=== PATIENT | male | born 1975 | race Caucasian/White ===

== ENCOUNTER 2017-06-12 13:22 | Inpatient (IN) | payer BC, MEDICAID, OTHER ==
[~2017-06-12] VITALS: Ht 182.9 cm; Wt 95.3 kg
--- NOTE | 2017-06-12 16:42 | NUR ---
PRE ADMISSION 41 year old male presented at intake, patient is alert and oriented x4, bp: 155/95 hr: 97 t: 98.2.2 r: 16 o2 sat: 96% room air. patient has poor eye contact, appears mildly intoxicated, flushed faced, inability to sit still, and disheveled. patient reports no known drug allergies. Patient reports substance use history of: etoh- 750ml of whiskey and 6-8 beers on a daily basis for 2 years. patient denies any history of seizures. patient reports father and mother have history of etoh substance abuse. patient reports this is his second time in treatment. patient was educated regarding unit policies and procedures with good verbal understanding. patient was seen by Dr. Valentin at intake office.
[2017-06-12] MEDS ORDERED: ACETAMINOPHEN 325 MG TABLET PO PRN (16:45)
[2017-06-12] MEDS ORDERED: LORAZEPAM 2 MG/1 ML VIAL IM PRN (16:45)
[2017-06-12] MEDS ORDERED: MAG HYDROX/AL HYDROX/SIMETH 30 ML LIQUID UDC PO PRN (16:45)
[2017-06-12] MEDS ORDERED: LORAZEPAM 1 MG TABLET PO PRN ×2 (16:45)
[2017-06-12] MEDS ORDERED: THIAMINE HCL 200 MG/2 ML VIAL IM ONE (16:45)
[2017-06-12] MEDS ORDERED: ONDANSETRON 4 MG/2 ML VIAL IM PRN (16:45)
[2017-06-12] MEDS ORDERED: DICYCLOMINE HCL 20 MG TABLET PO PRN (16:45)
[2017-06-12] MEDS ORDERED: ONDANSETRON ODT 4 MG TAB.RAPDIS SL PRN (16:45)
[2017-06-12] MEDS ORDERED: LOPERAMIDE HCL 2 MG CAPSULE PO PRN ×2 (16:45)
[2017-06-12] MEDS ORDERED: MIRALAX 17 GM POWD.PACK PO PRN (16:45)
[2017-06-12] MEDS ORDERED: MAGNESIUM HYDROXIDE 30 ML LIQUID UDC PO PRN (16:45)
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
[2017-06-12 17:19] VITALS: BP 155/95
[2017-06-12 17:32] LABS: *AMPHETAMINE, URINE NEGATIVE (NEGATIVE); *BARBITURATE, URINE NEGATIVE (NEGATIVE); *CANNABINOID, URINE NEGATIVE (NEGATIVE); *COCCAINE, URINE NEGATIVE (NEGATIVE); *OPIATE, URINE NEGATIVE (NEGATIVE); *PHENCYCLIDINE SCREEN,URINE NEGATIVE (NEGATIVE)
[2017-06-12 18:03] LABS: BASOPHILS % (AUTO) 0.6 % (0.0-2.0); EOSINOPHILS # (AUTO) 0.1 K/uL (0.0-0.7); EOSINOPHILS % (AUTO) 1.6 % (0.0-7.0); HEMATOCRIT 44.8 % (36.7-47.1); HEMOGLOBIN 15.5 g/dL (12.5-16.3); LYMPHOCYTES # (AUTO) 1.4 K/uL (20.0-40.0); LYMPHOCYTES % (AUTO) 20.9 % (20.5-51.5); MEAN CORPUSCULAR HEMOGLOBIN 34.4 uug (23.8-33.4); MEAN CORPUSCULAR HGB CONC 35 g/dL (32.5-36.3); MEAN CORPUSCULAR VOLUME 99.2 fL (73.0-96.2); MONOCYTES # (AUTO) 0.2 K/uL (2.0-10.0); MONOCYTES % (AUTO) 3.5 % (0.0-11.0); NEUTROPHILS # (AUTO) 4.9 K/uL (1.8-8.9); NEUTROPHILS % (AUTO) 73.4 % (38.5-71.5); PLATELET COUNT (AUTO) 207 K/uL (152-348); RED BLOOD CELL COUNT(AUTO) 4.51 MIL/uL (4.06-5.63); WHITE BLOOD COUNT (AUTO) 6.6 K/uL (3.6-10.2)
[2017-06-12 18:13] LABS: BILIRUBIN,TOTAL 0.5 mg/dL (0.2-1.0); CREATININE 0.9 mg/dL (0.6-1.3); MAGNESIUM 1.9 mg/dL (1.8-2.4); POTASSIUM 3.7 mmol/L (3.5-5.1); TOTAL PROTEIN, SERUM 7.2 g/dL (6.4-8.2)
--- NOTE | 2017-06-12 19:30 | NUR ---
Start of Shift Pt is a 41 y/o male admitted approximate 1430 today 06/12/17 for ETOH Withdrawal. He's found sitting quitly in chair staring out window. Dinner tray untouched, room clean and bed made, pt is despondent and guarded, flat affect, voice solemn and sad as we talk about his stay here, and his DUI which helped bring him here. Pt still appears to be moderately intoxicated, odor of alcohol present in room. Hx of depression/anxiety denied. Pt denies 12 step program attendance except for 20 years prior after first DUI. Pt informed of unit amenities, encouraged to explore/socialize outside of room, interest apparent in kitchen/snacks. Pt c/o anxiety 11/05, fine tremors noted. 2100 med to be Ativan 2mg PO. Will continue to monitor and promptly attend to all needs.
[2017-06-12 20:00] VITALS: BP 158/102
[2017-06-12] MEDS ORDERED: LORAZEPAM 1 MG TABLET PO SCH (21:00)
[2017-06-13] VITALS (8 sets, daily range): BP systolic 113–164; BP diastolic 69–111
--- NOTE | 2017-06-13 | NUR ---
VS's/CIWA Deferred. Pt sleeping, RR 14, even and nonlabored. Will continue to monitor and promptly meet all needs
--- NOTE | 2017-06-13 04:29 | NUR ---
PRN Med Pt presents at 0400 VS with SBP 147, P 113, CIWA performed at 12. Ativan 1mg PO given, will monitor and reassess in 1 hour
--- NOTE | 2017-06-13 05:27 | NUR ---
PRN Reassessment Ativan 1mg PO given 426, pt reports improvement as "headaches gone and I feel a little better". SBP 164, P 121, Clonodine 0.1 mg PO given. Will continue to monitor, assess in 1 hour, and promptly attend to all needs.
[2017-06-13] MEDS: CLONIDINE HCL 0.1 MG TABLET PO PRN ×2 (05:36→12:12)
--- NOTE | 2017-06-13 06:36 | NUR ---
PRN Med Reassessment Clonidine 0.1mg PO given at 0527 for SBP 164 and P 121. Current vitals 147/99, P 82. Clonodine effective. Will continue to monitor and promptly attend to all needs.
--- NOTE | 2017-06-13 06:59 | NUR ---
End of Shift Pt is a 41 y/o male admitted approximate 1430, 06/12/17 for ETOH Withdrawal. Pt drinking up to his admission here. Pt remains depressed and withdrawn but cooperative, affect flat, responding to questions appropriately but not actively seeking help. Given Ativan 2mg PO for 2100 with elevated BP and Pulse, 0100 VS wnl's. 0400 show elevated BP and pulse, CIWA 12, Ativan 1mg PO given at 0427. Reassessment 1 hour later showed SBP 164 w a rate of 121, Clonodine 0.1mg PO given. 0530 SPP 147, P 82-Clonidine effective. Will encourage Day RN to administer 0900 Ativan early and use PRN's as necessary. Input for shift 1000ml, Void 1, Sleep 7+ hours. Will continue to monitor and promptly attend to all needs.
--- NOTE | 2017-06-13 07:53 | NUR ---
START OF SHIFT NOTE Received report from night nurse, 41 year old male admitted for ETOH withdrawal. Patient placed on a Ativan taper starting today at 0900. Per endorsement patient received PRN Ativan 1 mg, Clonidine effective per night nurse and patient slept for 7 hours, last CIWA score was 12. Received patient alert awake agitated, anxious, nauseated, mood is sad, Bilateral tremors noted. Patient due for scheduled medications. Educated patient with current plan of the day and medications regimen and importance of attending groups and activities with good verbal understanding. Safety measures in place. Will cont with plan of care.
[2017-06-13] MEDS: FOLIC ACID 1 MG TABLET PO SCH (08:35)
[2017-06-13] MEDS: LORAZEPAM 1 MG TABLET PO SCH ×4 (08:35→21:30)
[2017-06-13] MEDS: THIAMINE HCL 100 MG TABLET PO SCH (08:35)
[2017-06-13] MEDS: MULTIVITAMINS,THERAPEUTIC TABLET PO SCH (08:35)
[2017-06-13] MEDS ORDERED: TUBERCULIN,PURIF.PROT.DERIV. 5 TU/0.1 ML TEST ID ONE (09:00)
--- NOTE | 2017-06-13 12:12 | NUR ---
PRN CLONIDINE Patient's blood pressure noted 150/100, HR-104. PRN Clonidine 0.1mg PO administered as ordered. Will cont to monitor and reassess the pt.
--- NOTE | 2017-06-13 13:13 | NUR ---
CLONIDINE REASSESSMENT Blood pressure noted 139/85. Clonidine was effective.
[2017-06-13] MEDS: IBUPROFEN 400 MG TABLET PO PRN ×2 (16:56→21:30)
--- NOTE | 2017-06-13 16:56 | NUR ---
PRN MOTRIN Patient c/o of body aches 5/10. PRN Motrin 400mg PO given as ordered. Will cont to monitor and reassess the pt.
[2017-06-13] MEDS: hydrALAZINE HCL 50 MG TABLET PO PRN (17:43)
--- NOTE | 2017-06-13 17:43 | NUR ---
PRN HYDRALAZINE Patient's blood pressure noted 155/103, HR-100. MD notified with new order to given Hydralazine 50mg PO medication was given as ordered. Will cont to monitor and reassess.
--- NOTE | 2017-06-13 17:56 | NUR ---
MOTRIN REASSESSMENT Per patient Motrin was effective body aches lower to 2/10.
--- NOTE | 2017-06-13 18:43 | NUR ---
HYDRALAZINE REASSESSMENT Blood pressure noted 139/89, HR-97. Hydralazine noted effective.
--- NOTE | 2017-06-13 19:10 | NUR ---
END OF SHIFT NOTE Patient presented with anxiety, agitation, body aches, chills, sweats, light headed, labile facial expression, tremors noted on bilateral hands, elevated blood pressure. Patient admitted for ETOH withdrawal and cont on 5 days Ativan taper. Vital signs WNL. During shift patient received PRN Clonidine 0.1mg PO and Motrin 400mg noted to be effective. PPD was given on RFA no swelling noted at this time. Skin intact warm and dry to touch. Patient was seen by psychiatrist with no new order at this time. Encourage pt to develop coping skills and utilization of non pharmacological intervention. Patient rested in his room most of the time. Patient was encouraged to participates in groups therapy session. Encourage diversional activities to alleviate anxiety. Patient denies any SI/HI. Safety measures in place. Patient endorsed to night nurse in stable condition.
--- NOTE | 2017-06-13 19:20 | NUR ---
START OF SHIFT Patient is a 41-year-old male admitted on 06/12/17 for ETOH withdrawal. Patient is on a 5-day Ativan taper which started today; tolerating well. Patient's last CIWA was 15 per day shift nurse. Patient received PRN Clonidine, hydralazine, and Motrin today; all noted effective by day nurse. Upon assessment, patient is in his room with lights off, stating "I can't fall asleep." Patient appears disheveled with flat affect, hypoactive and appears depressed. Patient reports feeling anxious. Patient is on fall and seizure precautions with no report of seizure history. Safety measures in place, side rails up x2, bed locked in lowest position, call light within reach. Will continue to monitor.
[2017-06-13] MEDS: diphenhydrAMINE 50 MG CAPSULE PO PRN (21:30)
--- NOTE | 2017-06-13 21:30 | NUR ---
PRN BENADRYL AND MOTRIN Patient reports inability to sleep, and requests aid. PRN Benadryl given PO. Patient reports low back pain of 5/10. PRN Motrin given PO. Safety measures in place, side rails up x2, bed locked in lowest position, call light within reach. Will monitor for effectiveness.
--- NOTE | 2017-06-13 22:30 | NUR ---
PRN BENADRYL AND MOTRIN REASSESSMENT Patient observed sleeping in bed, eyes closed, respirations even and unlabored. PRN Benadryl effective. Unable to reassess PRN Motrin at this time. Safety measures in place, call light within reach. Will continue to monitor.
[2017-06-14] VITALS: BP 122/74
--- NOTE | 2017-06-14 | NUR ---
CIWA DEFERRED CIWA deferred due to patient sleeping; to be assessed and scored while patient is awake. Respirations even and unlabored, 16/min. Safety measures in place, side rails up x2, bed locked in low position, call light within reach. Will continue to monitor.
--- NOTE | 2017-06-14 04:00 | NUR ---
VITALS REFUSED, CIWA DEFERRED Patient refused 4AM vitals, respirations even and unlabored, 16/min. CIWA deferred due to patient sleeping; to be assessed while patient is awake. Safety measures in place, side rails up x2, bed locked in low position, call light within reach. Will continue to monitor.
--- NOTE | 2017-06-14 07:10 | NUR ---
END OF SHIFT Patient is a 41-year-old male admitted on 06/12/17 for ETOH withdrawal. Patient is on a 5-day Ativan taper which started yesterday; tolerating well. Patient's last CIWA was 14. Patient received PRN Motrin and Benadryl; PRNs effective. Patient slept for 7 hours, total intake 1,254 mL, void x3, stool x1. Patient is on fall and seizure precautions with no report of seizure history. Safety measures in place, side rails up x2, bed locked in lowest position, call light within reach. Will endorse to day shift.
--- NOTE | 2017-06-14 07:48 | NUR ---
START OF SHIFT NOTE Received report from night nurse, 41 year old male admitted for ETOH withdrawal. Patient cont on a Ativan taper tolerating well. Per endorsement patient received PRN Motrin/Benadryl effective per night nurse and patient slept for 7 hours, last CIWA score was 14. Received patient alert awake agitated, anxious, Bilateral tremors noted. Patient due for scheduled medications. Educated patient with current plan of the day and medications regimen and importance of attending groups and activities with good verbal understanding. Safety measures in place. Will cont with plan of care.
[2017-06-14 08:00] VITALS: BP 120/78
[2017-06-14] MEDS: MULTIVITAMINS,THERAPEUTIC TABLET PO SCH (08:30)
[2017-06-14] MEDS: LORAZEPAM 1 MG TABLET PO SCH ×3 (08:30→20:30)
[2017-06-14] MEDS: FOLIC ACID 1 MG TABLET PO SCH (08:30)
[2017-06-14] MEDS: THIAMINE HCL 100 MG TABLET PO SCH (08:30)
[2017-06-14 12:00] VITALS: BP 136/88
[2017-06-14] MEDS ORDERED: LORAZEPAM 1 MG TABLET PO ONE (12:00)
[2017-06-14 12:07] LABS: HEPATITIS B SURFACE AG Negative (Negative)
--- NOTE | 2017-06-14 12:17 | NUR ---
ATIVAN ONE TIME CIWA score noted 13, order Ativan 1mg PO one time. Medication given as ordered.
[2017-06-14] MEDS: ESCITALOPRAM OXALATE 10 MG TABLET PO SCH (14:41)
--- NOTE | 2017-06-14 14:41 | NUR ---
NEW ORDER Patient was seen by Psychiatrist with new order for Lexapro 10mg PO,medication was administered as ordered.
[2017-06-14 16:00] VITALS: BP 123/87
--- NOTE | 2017-06-14 19:10 | NUR ---
END OF SHIFT NOTE Patient presented with anxiety, agitation, body aches, sweats, light headed, labile facial expression, tremors noted on bilateral hands. Patient admitted for ETOH withdrawal and cont on 5 days Ativan taper tolerating . Vital signs WNL. During shift patient received one time dose of Ativan noted to be effective. Skin intact warm and dry to touch. Patient was seen by psychiatrist with new order for Lexapro 10mg. Encourage pt to develop coping skills and utilization of non pharmacological intervention. Patient rested in his room most of the time. Patient was encouraged to participates in groups therapy session. Encourage diversional activities to alleviate anxiety. Patient denies any SI/HI. Safety measures in place. Patient endorsed to night nurse in stable condition.
--- NOTE | 2017-06-14 19:30 | NUR ---
START OF SHIFT Received 41 year old male patient admitted on 06/12/17 for ETOH withdrawal. Pt is alert and oriented x4. He is receiving a 5 day Ativan taper and is tolerating well. Per endorsement, pt received one time Ativan for CIWA:14. Pt noted to be depressed, restless, agitated, anxious with flat affect, racing thoughts and poor eye contact. Pt is withdrawn and isolative to his room. Breathing is even and unlabored, safety measures in place. Will continue to monitor.
[2017-06-14 20:00] VITALS: BP 139/97
[2017-06-14] MEDS: diphenhydrAMINE 50 MG CAPSULE PO PRN (20:29)
[2017-06-14] MEDS: CLONIDINE HCL 0.1 MG TABLET PO PRN (20:29)
--- NOTE | 2017-06-14 20:29 | NUR ---
PRN BENADRYL/CLONIDINE Pt complains of inability to sleep. Pt also noted with increased BP 139//97, HR: 108. PRN Benadryl and Clonidine administered as ordered. Safety measures in place. Will monitor effectiveness.
[2017-06-14 21:29] VITALS: BP 128/85
--- NOTE | 2017-06-14 21:29 | NUR ---
PRN REASSESSMENT PRN Benadryl ineffective. Pt still awake, appears drowsy and reports he is ready to sleep soon. PRN Clonidine effective. BP: 128/85, HR:88. Safety measures in place. Will continue to monitor.
[2017-06-15] VITALS: BP 125/76
--- NOTE | 2017-06-15 04:00 | NUR ---
VITALS REFUSED, CIWA DEFERRED 0400 vitals refused. CIWA deferred d/t pt lying in bed with eyes closed noted to be asleep. Breathing is even and unlabored, safety measures in place. Will continue to monitor.
--- NOTE | 2017-06-15 07:00 | NUR ---
END OF SHIFT Pt is a 41 year old male patient admitted on 06/12/17 for ETOH withdrawal. He remains alert and oriented x4. He continues on a 5 day Ativan taper. Currently on day 3 and tolerating well. He was noted to be depressed, restless, agitated, anxious with racing thoughts and poor eye contact during the shift. At 2028 he received PRN Benadryl for sleep and Clonidine d/t increased BP. Both medications were effective. He slept a total of 8 hrs, Intake: 1350ml, Void: x2, BM:0, CIWA:11 at 1999. Pt's MRSA result came back negative. Breathing is even and unlabored, safety meausres in place. Endorsed to AM shift.
--- NOTE | 2017-06-15 07:05 | NUR ---
Start of Shift Bench Molder Apprentice received report on 41 year old male admitted to [facility] on 06/12/17 for medically supervised management of ETOH withdrawals. Pt endorses NKA, a full code and regular diet. Pt reports no PMH. Pt currently on Ativan taper. Tolerating well, with last CIWA 11 recorded at 1999. PRN Benadryl and Clonidine administered on NOC, per report. Bench Molder Apprentice encounters pt in his room resting with eyes closed, rise and fall of chest noted, with even and unlabored respirations. Bed in low position with wheels locked and side rails up x2. Will continue to monitor, support and encourage according to plan of care.
[2017-06-15 08:14] VITALS: BP 140/98
[2017-06-15] MEDS ORDERED: LORAZEPAM 1 MG TABLET PO SCH ×2 (09:00→21:00)
[2017-06-15] MEDS: FOLIC ACID 1 MG TABLET PO SCH (09:07)
[2017-06-15] MEDS: ESCITALOPRAM OXALATE 10 MG TABLET PO SCH (09:07)
[2017-06-15] MEDS: MULTIVITAMINS,THERAPEUTIC TABLET PO SCH (09:07)
[2017-06-15] MEDS: THIAMINE HCL 100 MG TABLET PO SCH (09:07)
[2017-06-15 12:23] VITALS: BP 150/98
[2017-06-15] MEDS: LORAZEPAM 1 MG TABLET PO SCH ×2 (12:34→16:04)
[2017-06-15] MEDS: hydrALAZINE HCL 50 MG TABLET PO PRN (12:34)
--- NOTE | 2017-06-15 12:34 | NUR ---
PRN Felipe Pt's BP: 158/108. Programmer Numerical Control administers medication per order. Will continue to monitor, support and encourage according to plan of care.
--- NOTE | 2017-06-15 13:34 | NUR ---
PRN Re-assessment Pt's BP: 142/88, with no complaints. Will continue to monitor, support and encourage according to plan of care.
[2017-06-15 16:08] VITALS: BP 128/82
--- NOTE | 2017-06-15 18:54 | NUR ---
End of Shift Monitoring And Evaluation Advisor provided report on 41 year old male admitted to [facility] on 06/12/17 for medically supervised management of ETOH withdrawals. Pt endorses NKA, a full code and regular diet. Pt reports no PMH. Pt currently on Ativan taper. Tolerating well, with last CIWA 5 recorded at 1600. PRN Hydrolazyne administered for HTN, effective. Pt is A/O x4 and makes his needs known. Isolates to room and self. Pt has remained in bed at window thru out the shift. Irritated affect with a depressed mood. Cooperative, but withdrawn and distant. Bed in low position with wheels locked and side rails up x2. Will continue to monitor, support and encourage according to plan of care.
--- NOTE | 2017-06-15 19:30 | NUR ---
START OF SHIFT Received 41 year old male patient admitted on 06/12/17 for ETOH withdrawal. Pt is alert and oriented x4. He continues on a 5 day modified Ativan taper and tolerating well. Per endorsement, he received PRN Hydralazine for increased BP. Pt noted to be disheveled wearing unwashed clothing. He is noted with tremors, anxiety, agitation, poor eye contact, . Pt is withdrawn and isolated to his room. Breathing is even and unlabored, safety measures in place. Will continue to monitor.
[2017-06-15 20:00] VITALS: BP 125/74
[2017-06-15] MEDS: GABAPENTIN 300 MG CAPSULE PO SCH (20:27)
[2017-06-15] MEDS: diphenhydrAMINE 50 MG CAPSULE PO PRN (20:27)
--- NOTE | 2017-06-15 20:27 | NUR ---
PRN BENADRYL Pt complains of difficulty sleeping. PRN Benadryl administered as ordered. Breathing is even and unlabored, safety measures in place. Will continue to monitor effectiveness.
--- NOTE | 2017-06-15 21:27 | NUR ---
PRN REASSESSMENT PRN medication ineffective. Pt still awake but appears drowsy and reports he is going to sleep soon. Safety measures in place. Will continue to monitor.
[2017-06-16] VITALS: BP 122/80
--- NOTE | 2017-06-16 04:00 | NUR ---
VITALS REFUSED/ CIWA DEFERRED 0400 vitals refused. CIWA deferred d/t pt lying in bed with eyes closed noted to be asleep. Breathing is even and unlabored, safety measures in place. Will monitor.
--- NOTE | 2017-06-16 07:08 | NUR ---
END OF SHIFT Pt is a 41 year old male patient admitted on 06/12/17 for ETOH withdrawal. He remains alert and oriented x4. He continues on a 5 day modified Ativan taper, currently on day 4/5 and tolerating well. Pt was noted with tremors, anxiety, and agitation. He was also noted to be withdrawn and isolated to his room during the shift. At 2026 he received PRN Benadryl. He slept a total of 6 hrs, Intake: 1,346mL, Void:x2, BM:x1, CIWA;7 at 2000. Breathing is even and unlabored, safety measures in place. Endorsed to AM shift.
--- NOTE | 2017-06-16 07:15 | NUR ---
Start of Shift Office Manager Receptionist received report on 41 year old male admitted to [facility] on 06/12/17 for medically supervised management of ETOH withdrawals. Pt endorses NKA, a full code and regular diet. Pt reports no PMH. Pt currently on Ativan taper. Tolerating well, with last CIWA 7 recorded at 1999, per report. PRN Benadryl administered on NOC, per report. Office Manager Receptionist encounters pt in his room resting with eyes closed, rise and fall of chest noted, with even and unlabored respirations. Bed in low position with wheels locked and side rails up x2. Will continue to monitor, support and encourage according to plan of care.
[2017-06-16 08:44] VITALS: BP 123/87
[2017-06-16] MEDS: GABAPENTIN 300 MG CAPSULE PO SCH ×2 (08:51→20:19)
[2017-06-16] MEDS: MULTIVITAMINS,THERAPEUTIC TABLET PO SCH (08:51)
[2017-06-16] MEDS: THIAMINE HCL 100 MG TABLET PO SCH (08:51)
[2017-06-16] MEDS: ESCITALOPRAM OXALATE 10 MG TABLET PO SCH (08:51)
[2017-06-16] MEDS: FOLIC ACID 1 MG TABLET PO SCH (08:51)
[2017-06-16] MEDS ORDERED: LORAZEPAM 1 MG TABLET PO SCH ×3 (09:00→21:00)
--- NOTE | 2017-06-16 10:33 | NUR ---
Therapist prompted client about group times. Client stated he will try to attend groups today.
[2017-06-16 12:15] VITALS: BP 149/96
[2017-06-16] MEDS: CLONIDINE HCL 0.1 MG TABLET PO PRN (13:25)
--- NOTE | 2017-06-16 13:25 | NUR ---
PRN Clonidine Pt's BP: 147/96, asymptomatic. Check Totaler administers medication per order and pt tolerated well. Will continue to monitor, support and encourage according to plan of care.
--- NOTE | 2017-06-16 14:25 | NUR ---
PRN Re-Assessment Pt's BP 134/82 on recheck. Will contineu to monitor, support and encourage according to plan of care.
[2017-06-16 16:30] VITALS: BP 112/82
--- NOTE | 2017-06-16 19:30 | NUR ---
START OF SHIFT Received 41 year old male patient admitted on 06/12/17 for ETOH withdrawal. Pt is alert and oriented x4. Pt continues on a 5 day Ativan taper and is tolerating well. Pt is noted to be anxious, agitated, tremulous, irritable and restless. He is isolated and withdrawn with flat affect. Pt noted to be disheveled and unshaved. Per endorsement, he did not attend group meetings. He received PRN Clonidine for increased BP. Medication was effective. Breathing is even and unlabored, safety measures in place. Will continue to monitor.
--- NOTE | 2017-06-16 19:38 | NUR ---
End of Shift Beater Out received report on 41 year old male admitted to [facility] on 06/12/17 for medically supervised management of ETOH withdrawals. Pt endorses NKA, a full code and regular diet. Pt reports no PMH. Pt currently on Ativan taper. Tolerating well, with last CIWA 3 recorded at 1600. Pt has been isolative to room and self. [facility] Withdrawn and guarded, A/O x4 Bed in low position with wheels locked
[2017-06-16 20:00] VITALS: BP 143/87
[2017-06-16] MEDS: diphenhydrAMINE 50 MG CAPSULE PO PRN (20:19)
--- NOTE | 2017-06-16 20:19 | NUR ---
PRN BENADRYL Pt complains of difficulty sleeping. PRN Benadryl administered as ordered. Safety measures in place. Will monitor effectiveness.
--- NOTE | 2017-06-16 21:19 | NUR ---
PRN REASSESSMENt PRN medication ineffective. Pt is still awake, watching TV. He reports feeling drowsy and is ready to sleep soon. Safety measures in place. Will monitor.
--- NOTE | 2017-06-17 | NUR ---
VITALS REFUSED, CIWA DEFERRED Pt refused midnight vital signs. CIWA deferred d/t pt lying in bed with eyes closed noted to be asleep. Breathing even and unlabored, safety measures in place. Will monitor.
--- NOTE | 2017-06-17 04:00 | NUR ---
VITALS REFUSED, CIWA DEFERRED 0400 vitals refused. CIWA deferred d/t pt lying in bed with eyes closed noted to be asleep. Breathing even and unlabored, safety measures in place. Will continue to monitor.
--- NOTE | 2017-06-17 07:04 | NUR ---
END OF SHIFT Pt is a 41 year old male patient admitted on 06/12/17 for ETOH withdrawal. He remains alert and oriented x4. He continues on a modified 5 day Ativan taper and is tolerating well. Pt was noted to be anxious, agitated, tremulous, irritable and restless during the shift. He had complaints of difficulty sleeping and received PRN Benadryl at 2019. He slept a total of 6 hrs, Intake: 1,710mL, Void: x3, BM:0, CIWA:6 at 2000. Breathing is even and unlabored, safety measures in place. Endorsed to AM shift.
--- NOTE | 2017-06-17 07:30 | NUR ---
START OF SHIFT Pt 41 y/o male admitted for etoh withdrawal. Pt received in room with eyes closed resting, but easily arousable to name. Pt alert and oriented to name, place, and time. Perrla. Skin warm and moist to touch. Respirations even and unlabored. Bilateral hand tremors noted. Open empty water bottles scattered throughout the room. Encouraged to maintain hygiene. It was reported that pt slept for 6 hours last night. Last reported ciwa=6 @2000. Pt is on a modified 3 day ativan and is on day 2. Bed on lowest position with side rails x2 up for safety. Call light within reach.
[2017-06-17 08:00] VITALS: BP 119/73
[2017-06-17] MEDS: GABAPENTIN 300 MG CAPSULE PO SCH ×3 (08:35→20:40)
[2017-06-17] MEDS: MULTIVITAMINS,THERAPEUTIC TABLET PO SCH (08:35)
[2017-06-17] MEDS: LORAZEPAM 1 MG TABLET PO SCH ×3 (08:35→20:40)
[2017-06-17] MEDS: AMLODIPINE 5 MG TABLET PO SCH (08:35)
[2017-06-17] MEDS: FOLIC ACID 1 MG TABLET PO SCH (08:35)
[2017-06-17] MEDS: THIAMINE HCL 100 MG TABLET PO SCH (08:35)
[2017-06-17] MEDS ORDERED: ESCITALOPRAM OXALATE 10 MG TABLET PO SCH (09:00)
[2017-06-17] MEDS ORDERED: LORAZEPAM 1 MG TABLET PO SCH (09:00)
[2017-06-17 12:00] VITALS: BP 124/74
[2017-06-17] MEDS ORDERED: DIPH50CA37 PO (14:22)
[2017-06-17] MEDS ORDERED: ESCI10TA PO (14:22)
[2017-06-17] MEDS ORDERED: AMLO5TAB2 PO (14:22)
[2017-06-17] MEDS ORDERED: CLON0.1T14 PO (14:22)
[2017-06-17] MEDS ORDERED: GABA-534 PO (14:22)
[2017-06-17 16:00] VITALS: BP 140/88
--- NOTE | 2017-06-17 18:36 | NUR ---
END OF SHIFT Pt 41 y/o male admitted for etoh withdrawal. Pt alert and oriented to name, place, and time. Perrla. Skin warm and moist to touch. Respirations even and unlabored. Bilateral hand tremors noted. Pt appears disheveled and unkempt. Empty water bottles scattered throughout the room. Clothes scattered throughout the room. Encourage to maintain hygiene. Pt mostly isolative to room throughout the day. Pt did attend group activity. Pt was seen by MD today. Pt medication compliant and tolerated well. No ASE noted. Pt is on a modified 3 day ativan and is on day 2. Ciwas=9@0800, 9@1200, and 9@1600. Bed on lowest position with side rails x2 up for safety. Call light within reach.
--- NOTE | 2017-06-17 19:30 | NUR ---
Start of Shift Patient Received. Patient is noted in his room, awake, alert and verbally responsive. Breathing even and non labored. Per endorsement, patient continues on a modified 5 day Ativan taper. Patient is noted to be non-compliant with group meetings but noted to participate in social activities. Otherwise patient is noted to be isolative to room. No PRN medications administered. Last noted CIWA 9. All needs attended to promptly. Will continue plan of care as ordered.
--- NOTE | 2017-06-17 19:35 | NUR ---
Start of Shift Patient Received. Patient is noted in his room, awake, alert and verbally responsive. Breathing even and non labored. Patient is a 33 year old male admitted today for ETOH Withdrawal and is starting on a modified 5 day Ativan taper. Labs drawn and Mag noted to be 1.5 and was replaced with Mag Ox 800mg. Patient was given PRN Zofran for increased nausea with medication noted to be effective. Last noted CIWA 3. All needs attended to promptly. Will continue plan of care as ordered. Addendum: 06/17/17 at 2303 by SARA RIVERA LVN ENTERED IN ERROR
[2017-06-17 20:38] VITALS: BP 136/94
[2017-06-17] MEDS: diphenhydrAMINE 50 MG CAPSULE PO PRN (20:48)
--- NOTE | 2017-06-17 20:50 | NUR ---
PRN Medication Administration Patient is noted verbalizing inability of falling asleep and requesting for sleep medication. PRN Benadryl administered as per order. Will continue to monitor.
--- NOTE | 2017-06-17 23:06 | NUR ---
PRN Medication Reassessment Patient is noted in bed sleeping. Breathing even and non labored. No signs of restlessness noted. PRN Benadryl noted to be effective. All needs attended to promptly. Will continue plan of care as ordered.
--- NOTE | 2017-06-18 00:20 | NUR ---
VITALS REFUSED, COWS/CIWA DEFERRED 0000 vitals refused. COWS and CIWA deferred d/t pt lying in bed with eyes closed noted to be asleep. Breathing is even and unlabored, safety measures in place. Will monitor.
--- NOTE | 2017-06-18 04:12 | NUR ---
VITALS REFUSED, CIWA DEFERRED 0400 vitals refused. CIWA deferred due to patient sleeping. Breathing is even and unlabored. No restlessness or discomfort noted. Will continue to monitor. Addendum: 06/18/17 at 0413 by SARA RIVERA LVN Amended: Links added.
--- NOTE | 2017-06-18 07:21 | NUR ---
End of Shift Patient is in bed sleeping. Breathing even and non labored. No signs of restlessness or discomfort noted. Patient continues on a modified 5 day Ativan taper. Patient is noted to be non-compliant with group meetings and social meetings. He is noted to be isolative to room and states I dont want to go to meetings just yet because Im going to have to be going to them when I leave here. So I will just wait to go then. Patient received PRN Benadryl and noted to sleep a total of 5 hours. Last noted CIWA 11. All needs attended to promptly. Will endorse to continue plan of care as ordered.
--- NOTE | 2017-06-18 07:30 | NUR ---
START OF SHIFT Pt 41 y/o male admitted for etoh withdrawal. Pt received in room with eyes closed resting, but easily arousable to name. Pt alert and oriented to name, place, and time. Perrla. Skin warm and moist to touch. Respirations even and unlabored. Bilateral hand tremors noted. Clothes scattered throughout the room. Encouraged to maintain hygiene. It was reported that pt slept for 6 hours last night. Last reported ciwa=11 @2100. Pt is on a modified 3 day ativan and is on day 3. Bed on lowest position with side rails x2 up for safety. Call light within reach.
[2017-06-18 08:00] VITALS: BP 108/67
[2017-06-18] MEDS: GABAPENTIN 300 MG CAPSULE PO SCH ×3 (08:42→21:33)
[2017-06-18] MEDS: MULTIVITAMINS,THERAPEUTIC TABLET PO SCH (08:42)
[2017-06-18] MEDS: AMLODIPINE 5 MG TABLET PO SCH (08:43)
[2017-06-18] MEDS: THIAMINE HCL 100 MG TABLET PO SCH (08:43)
[2017-06-18] MEDS: FOLIC ACID 1 MG TABLET PO SCH (08:43)
[2017-06-18] MEDS: ESCITALOPRAM OXALATE 10 MG TABLET PO SCH (08:50)
[2017-06-18] MEDS ORDERED: LORAZEPAM 1 MG TABLET PO SCH (09:00)
[2017-06-18 12:00] VITALS: BP 155/98
[2017-06-18] MEDS: hydrALAZINE HCL 50 MG TABLET PO PRN (12:53)
--- NOTE | 2017-06-18 12:53 | NUR ---
PRN pt with bs=152/90. Hydralazine po prn per MD order given and tolerated well.
--- NOTE | 2017-06-18 13:53 | NUR ---
PRN EVAL pt with pu=867/88
[2017-06-18 16:00] VITALS: BP 127/82
--- NOTE | 2017-06-18 18:35 | NUR ---
END OF SHIFT Pt 41 y/o male admitted for etoh withdrawal. Pt alert and oriented to name, place, and time. Perrla. Skin warm and moist to touch. Respirations even and unlabored. Bilateral hand tremors noted. Pt appears disheveled and unkempt. Empty water bottles scattered throughout the room. Encourage to maintain hygiene. Pt is scheduled to be discharged tomorrow. Pt mostly isolative to room throughout the day. Pt did not attend group activity. Pt was seen by MD today. Pt medication compliant and tolerated well. No ASE noted. Pt is on a modified 3 day ativan and is on day 3. Ciwas=9@0800, 6@1200, and 6@1600. Bed on lowest position with side rails x2 up for safety. Call light within reach.
--- NOTE | 2017-06-18 19:30 | NUR ---
Start of Shift Notes Received a 41 y/o male px, admitted on 06/12/2017 for medically supervised withdrawals from ETOH. Px is to be D/C tomorrow 06/19/2017. Px completed an Ativan taper. Px tolerated it very well. During the rounds at 1930, px appears unshaven. No complaints made at the moment. Last reported CIWA 6 by AM shift nurse. Bed on lowest position, side rails up 2x, and call light within reach. We'll continue to monitor.
[2017-06-18 20:00] VITALS: BP 129/87
[2017-06-18] MEDS: diphenhydrAMINE 50 MG CAPSULE PO PRN (21:33)
--- NOTE | 2017-06-18 21:33 | NUR ---
PRN Benadryl Px was given Benadryl 50 mg/cap, 1 cap PO as PRN for insomnia. We'll continue to monitor.
[2017-06-19] VITALS: BP 125/82
[2017-06-19 04:00] VITALS: BP 121/78
--- NOTE | 2017-06-19 07:18 | NUR ---
End of Shift Notes Px is to be D/C to day 06/19/2017. During the shift at 2133, Benadryl 50 mg PO was given to px for insomnia. It was effective. Px's oral intake is 900 ml, voided 3x, No BM. Px slept for 7 hours. At 0630, px is asleep on bed in right side lying position. Last CIWA 5. Bed on lowest position, side rails up 2x, and call light within reach. We'll continue to monitor. Px endorsed to AM shift nurse.
--- NOTE | 2017-06-19 07:30 | NUR ---
START OF SHIFT Pt 41 y/o male admitted for etoh withdrawal. Pt received in room with eyes closed resting, but easily arousable to name. Pt alert and oriented to name, place, and time. Perrla. Skin warm and moist to touch. Respirations even and unlabored. Pt appears disheveled. Encouraged to maintain hygiene. It was reported that pt slept for 7 hours last night. Last reported ciwa=5 @2100. Pt completed an ativan taper. Bed on lowest position with side rails x2 up for safety. Call light within reach. Pt is scheduled to be discharged today.
[2017-06-19 08:00] VITALS: BP 128/84
[2017-06-19] MEDS: ESCITALOPRAM OXALATE 10 MG TABLET PO SCH (08:27)
[2017-06-19] MEDS: GABAPENTIN 300 MG CAPSULE PO SCH (08:27)
[2017-06-19] MEDS: MULTIVITAMINS,THERAPEUTIC TABLET PO SCH (08:27)
[2017-06-19] MEDS: THIAMINE HCL 100 MG TABLET PO SCH (08:27)
[2017-06-19 08:28] VITALS: BP 128/84
[2017-06-19] MEDS: FOLIC ACID 1 MG TABLET PO SCH (08:28)
[2017-06-19] MEDS: AMLODIPINE 5 MG TABLET PO SCH (08:28)
--- NOTE | 2017-06-19 09:33 | NUR ---
DISHCHARGE Pt 41 y/o male admitted for eoth withdrawal. Pt alert and oriented to name, place, and time. Perrla. Skin warm and dry to touch. Respirations even and unlabored. Pt dishcharged to [facility] via private transport. No belongings in cassette or home medications noted. Pt clarified that he did not bring any home medications. All prescriptions, dishcharge papers, and belongings in cabinets packed in pt bag. VS wnl. Pt denies any HI/SI. No distress noted.
== END 2017-06-19 09:33 | disposition other institution (70) | DRG 895 ==
LOC: SRC 16:10
PROVIDERS: ADMIT Internal Medicine; ATTEND Internal Medicine
PROC: HZ2ZZZZ Detoxification Services for Substance Abuse Treatment (ICD-10-PCS; principal; 2017-06-12)
PROC: HZ31ZZZ Individual Counseling for Substance Abuse Treatment, Behavioral (ICD-10-PCS; 2017-06-16)
DX: F10.239 Alcohol dependence with withdrawal, unspecified (principal); K70.10 Alcoholic hepatitis without ascites; I15.9 Secondary hypertension, unspecified; F17.210 Nicotine dependence, cigarettes, uncomplicated; Y90.9 Presence of alcohol in blood, level not specified; Z81.1 Family history of alcohol abuse and dependence; Z91.89 Other specified personal risk factors, not elsewhere classified; Z81.8 Family history of other mental and behavioral disorders; F32.9 Major depressive disorder, single episode, unspecified
CPT/HCPCS: 36415; 80307; 83735; 85025; 86580; 86592; 86705; 86803; 87340; 87806; A4663; G0480; Q0163